=== PATIENT | male | born 2000 | race Caucasian/White ===

== ENCOUNTER 2018-12-17 17:40 | Emergency (ER) | payer SELFPAY ==
[~2018-12-17] VITALS: Wt 86.4 kg
[2018-12-17 18:51] LABS: EOS # 0.3 (0.04-0.40); EOS % 4.3 % (0.0-4.0); HEMATOCRIT 40.4 % (36.0-47.0); LYMPH# 2.6 (1.50-4.00); MEAN CELL VOLUME 86 fl (78-95); MEAN CORPUSCULAR HEMOGLOBIN 30 pg (26-32); MEAN CORPUSCULAR HGB CONC 35 g/dL (33-37); MEAN PLATELET VOLUME 9.6 fl (7.4-10.4); MONO # 0.5 (0.20-0.80); NEU # 2.8 (1.40-6.50); PLATELET COUNT 256 K/mm3 (130-400); RED BLOOD COUNT 4.68 M/mm3 (4.20-5.60); RED CELL DISTRIBUTION WIDTH 12.3 % (11.5-14.5); WHITE BLOOD COUNT 6.3 K/mm3 (4.8-10.8)
[2018-12-17 20:10] VITALS: BP 132/74
== END 2018-12-17 20:10 | disposition home or self-care (01) ==
LOC: ED 17:40
PROVIDERS: Family Medicine
DX: R07.81 Pleurodynia (principal); F17.290 Nicotine dependence, other tobacco product, uncomplicated